=== PATIENT | male | born 1930 ===

== ENCOUNTER 2018-07-27 03:33 | Inpatient (IN) | payer OTHER, MEDICARE ==
[~2018-07-27] VITALS: Ht 182.9 cm; Wt 77.6 kg
[~2018-07-27 03:33] MED LIST: AMLODIPINE BESYL5 M1 PO; ATORVASTATIN CA20 M1 PO; LISINOPRIL20 M1 PO; ST. JOSEPH ASPI81 M1 PO
--- NOTE | 2018-07-27 10:24 | Admission Core Measures ---
Acute Coronary Syndrome (CM) ACS Core Measures Acute Coronary Syndrome Diagnosis No Congestive Heart Failure (NEW) CHF Core Measures Congestive Heart Failure Diagnosis No Cerebrovascular Accident CVA Core Measures CVA/TIA Diagnosis No Venous Thromboembolism VTE Core Gaudencio (View Protocol) VTE Risk Factors Surgery No Mechanical VTE Prophylaxis d/t N/A MechProphylax Ordered No VTE Pharm Prophylaxis d/t NA PharmProphylax ordered Problem List As ranked by this Provider includes Assessment & Plan 1. Unilateral primary osteoarthritis, left hip HOME MEDS Home Med List Amlodipine Besylate 5 MG TABLET 1 TAB PO DAILY BP (Reported) Aspirin ([place] Aspirin) 81 MG TABLET.DR 1 TAB PO DAILY HEARTHEALTH ( Reported) Atorvastatin Calcium 20 MG TABLET 1 TAB PO DAILY CHOLESTEROL (Reported) Lisinopril 20 MG TABLET 1 TAB PO DAILY BP (Reported)
[2018-07-27] MEDS ORDERED: ASPIRIN EC81 M1 PO (10:26)
[2018-07-27] MEDS ORDERED: COLACE100 M1 PO (10:26)
[2018-07-27] MEDS ORDERED: MIRALAX17 G1 PO (10:26)
[2018-07-27] MEDS ORDERED: PRILOSEC OTC20 M1 PO (10:26)
[2018-07-27] MEDS ORDERED: DILAUDID2 M1 PO (10:26)
--- NOTE | 2018-07-27 10:28 | Patient Discharge Instructions ---
Discharge Instructions General Discharge Information You were seen/treated for: Left hip pain related to unilateral primary osteoarthritis You had these procedures: Left total hip replacement Watch for these problems: Increasing pain despite the use of pain medication Increasing redness, warmth or swelling Drainage of any type from incision Inability to bear weight on operative leg Persistent nausea and vomiting Fever greater than 101.5 degrees Do not soak the wound: Yes No bath, but you may shower: Yes Other wound care: Please keep wound clean and dry. No ointments or lotions of any type on or near incision at any time. No exceptions. Your dressing will be changed by your nurse on the second day after your surgery. Daily dry dressing changes are recommended each day thereafter. Do not soak your wound in a bath or pool at any time until otherwise indicated by your surgeon. You may shower, please dry wound immediately after shower with a clean towel. Special Instructions: Aspirin: You are taking this medication to help prevent blood clot formation. Please take with food to protect your stomach lining. Please take as directed. Constipation: Pain medication can cause constipation. Your surgeon has recommended that you take Colace and miralax each day. You may discontinue this medication if you develop loose stool or diarrhea. If you wish to continue this medication, it is available over the counter. If you are unable to move your bowels after several days, if you are unable to pass gas and are developing bloating, nausea, or vomiting as a result, please contact your doctor. Diet Continue normal diet: Yes Recommended Diet: Heart Healthy Activity Full Activity/No Limits: No Activity Self Limited: Yes Pounds, do NOT lift more than: 10 Activity Limited to: Weight bear as tolerated Acute Coronary Syndrome Inclusion Criteria At DC or during hospital stay patient has or had the following: ACS DIAGNOSIS No Discharge Core Measures Meds if any: Prescribed or Continued at Discharge Meds if any: NOT Prescribed or Continued at Discharge Congestive Heart Failure Inclusion Criteria At DC or during hospital stay patient has or had the following: CHF DIAGNOSIS No Discharge Core Measures Meds if any: Prescribed or Continued at Discharge Meds if any: NOT Prescribed or Continued at Discharge Cerebrovascular accident Inclusion Criteria At DC or during hospital stay patient has or had the following: CVA/TIA Diagnosis No Discharge Core Measures Meds if any: Prescribed or Continued at Discharge Meds if any: NOT Prescribed or Continued at Discharge Venous thromboembolism Inclusion Criteria VTE Diagnosis No VTE Type NONE VTE Confirmed by (Test) NONE Discharge Core Measures - Per Current guidelines, there needs to be overlap - treatment for the first 5 days of Warfarin therapy. - If discharged on Warfarin prior to 5 days of - overlap therapy, the patient will need to be - assessed for post discharge needs including - *Post discharge parental anticoagulation - *Warfarin and/or parental anticoagulation education - *Follow up date to check INR post discharge At least 5 days overlap therapy as Inpatient No Meds if any: Prescribed or Continued at Discharge Note: Overlap Therapy is Warfarin and Anticoagulant Meds if any: NOT Prescribed or Continued at Discharge
--- NOTE | 2018-07-27 10:32 | Surgical Discharge Summary ---
Visit Information Visit Dates Admission Date: 07/27/18 History of Present Illness Chief Complaint: Left hip pain related to unilateral primary osteoarthritis Medical History Isolation History: Standard Surgical History Pertinent Surgical History: non-contributory Review of Systems: See H&P Hospital Course Course Attending Physician: Duane Messina MD Primary Care Physician: Rocky FORRESTER,[facility] Hospital Course: Patient was admitted to the hospital for an elective total joint replacement. The procedure was tolerated well and patient was transferred to a general surgical floor. Diet was advanced and tolerated. The patient was evaluated and treated by physical therapy. At the time of hospital discharge, the vital signs were stable, neurovascular status was intact, and pain was controlled with the use of oral pain medications. Allergies: Coded Allergies: Penicillins (RASH 07/21/18) Disposition Summary Disposition Principal Diagnosis: Left hip unilateral primary ostoearthritis Additional Diagnosis: None Discharge Disposition: home health services Discharge Instructions General Discharge Information Code Status: Full Code Patient's Diet: Heart healthy, advance as tolerated Patient's Activity: WBAT Follow-Up Instructions/Appts: Follow up with Dr. Messina in 6 weeks from date of surgery. Please call office to arrange &/or confirm this appointment. Medications at Discharge Discharge Medications: Stop taking the following medications: Aspirin ([place] Aspirin) 81 MG TABLET.DR ORAL DAILY Continue taking these medications: Atorvastatin Calcium (Atorvastatin Calcium) 20 MG TABLET 1 Tablet ORAL DAILY Amlodipine Besylate (Amlodipine Besylate) 5 MG TABLET 1 Tablet ORAL DAILY Lisinopril (Lisinopril) 20 MG TABLET 1 Tablet ORAL DAILY Start taking the following new medications: Aspirin (Ecotrin*) 81 MG TABLET.DR 1 Tablet ORAL TWICE DAILY Qty = 60 No Refills Docusate Sodium (Colace) 100 MG CAPSULE 1 Capsule ORAL TWICE DAILY Qty = 14 No Refills Instructions: DISCONTINUE USE IF YOU DEVELOP LOOSE STOOL OR DIARRHEA Polyethylene Glycol 3350 (Miralax) 17 GRAM POWD.PACK 1 Packet ORAL DAILY Qty = 7 No Refills Instructions: dissolve in water, DISCONTINUE USE IF YOU DEVELOP LOOSE STOOL OR DIARRHEA Omeprazole Magnesium (Prilosec Otc) 20 MG TABLET.DR 1 Tablet ORAL DAILY Qty = 30 No Refills Hydromorphone HCl (Dilaudid) 2 MG TABLET 1-2 Tablet ORAL EVERY 4-6 HOURS NEEDED as needed for PAIN Qty = 36 No Refills
--- NOTE | 2018-07-27 14:17 | RADIOLOGY REPORT ---
EXAMINATION: XR HIP, LEFT CLINICAL INFORMATION: Postoperative hip replacement. COMPARISON: None TECHNIQUE: Two views of the left hip. FINDINGS: The femoral head prosthesis is well centered within the acetabular cup which has lateral version of approximately 45 degrees and anteversion of approximately 20 degrees. The femoral stem is well centered within the medullary cavity of the proximal femoral diaphysis. No acute periprosthetic fracture. Drainage tube is seen within the hip. Peripheral vessels are calcified. IMPRESSION: Satisfactory position and alignment of components of the left total hip arthroplasty.
--- NOTE | 2018-07-27 14:47 | Cons- Medical ---
Sohail Cunha MD 07/27/18 1447: General Information and HPI Consulting Request Date of Consult: 07/27/18 Requested By: Duane Messina MD History of Present Illness: 87-year-old man with past medical history of coronary artery disease status post 6 vessel CABG (January 2000), hypertensive heart disease, hyperlipidemia, atrial flutter status post ablation (2008), system disease, and presyncope admitted for an elective left total hip replacement. Patient underwent the procedure with his orthopedist Dr. Messina today (07/27/18) uneventfully. In the PACU postoperatively patient was found to be bradycardic with an irregular rhythm for which a medical consult was placed given his extensive cardiovascular history. Presently patient is awake and alert and following commands. He admits to moderate/severe left hip pain after the procedure but otherwise denies any complaints. Review of systems He denies any headache, fever, chills, chest pain, palpitations, heartburn, shortness of breath, cough, nausea, vomiting, diarrhea, abdominal pain, numbness , tingling, or weakness. Allergies/Medications Allergies: Coded Allergies: Penicillins (RASH 07/21/18) Home Med List: Amlodipine Besylate 5 MG TABLET 1 TAB PO DAILY BP (Reported) Aspirin ([place] Aspirin) 81 MG TABLET.DR 1 TAB PO DAILY HEARTHEALTH ( Reported) Aspirin (Ecotrin*) 81 MG TABLET.DR 1 TAB PO BID ANTICOAGULATION Atorvastatin Calcium 20 MG TABLET 1 TAB PO DAILY CHOLESTEROL (Reported) Docusate Sodium (Colace) 100 MG CAPSULE 1 CAP PO BID CONSITPATION DISCONTINUE USE IF YOU DEVELOP LOOSE STOOL OR DIARRHEA Hydromorphone HCl (Dilaudid) 2 MG TABLET 1-2 TAB PO Q4-6 PRN PRN PAIN Lisinopril 20 MG TABLET 1 TAB PO DAILY BP (Reported) Omeprazole Magnesium (Prilosec Otc) 20 MG TABLET.DR 1 TAB PO DAILY GI PROTECTION Polyethylene Glycol 3350 (Miralax) 17 GRAM POWD.PACK 1 PAC PO DAILY CONSTIPATION dissolve in water, DISCONTINUE USE IF YOU DEVELOP LOOSE STOOL OR DIARRHEA Review of Systems Review of Systems Constitutional: Reports: see HPI. Past History Surgical History Surgical History: non-contributory Psychosocial History Smoking Status: Unknown If Ever Smoked Exam & Diagnostic Data Last 24 Hrs of Vital Signs/I&O See paper chart, notable for bradycardia Physical Exam Other Physical Findings: Gen.-well-developed, overweight elderly man in no acute distress HEENT-NCAT, PERRL, EOMI, anicteric sclera, moist mucous membranes Neck-supple, no JVD, trachea midline Cardio-normal S1/S2 without murmurs/gallops/rubs; irregular and bradycardic Pulmonary-clear to auscultation bilaterally Abdomen-soft, nontender, nondistended, bowel sounds intact Neuro-awake and alert, cranial nerves II through XII grossly intact Left hip-surgical dressing in place without any surrounding drainage with drain in place draining serosanguineous fluid Extremities-pulses/sensation intact distally, no edema Last 24 Hrs of Labs/Theodore: None available, preoperative labs available in chart Assessment/Plan Assessment/Plan 87-year-old man with an extensive cardiovascular history admitted for left total hip replacement found to be bradycardic postoperatively for which a medicine consult was placed. Notes from patient's food technology teacher Dr. Bryon Eubanks available in the chart were reviewed and comments palpitations significant cardiovascular history including significant conduction system disease including atrial flutter status post ablation, atrial fibrillation at times, wenkebach. Beta-blockers should be avoided in this patient unless he suddenly becomes tachycardia for which low dose betablockers may be considered. Patient should be monitored on the telemetry floor postoperatively for further arrhythmias. Cardiology consultation should be obtained. Patient's home medications should be continued and his left hip pain should be addressed. Problem list -Status post left total hip replacement, POD #0 -Coronary artery disease status post 6 vessel CABG in January 2000 -History of atrial flutter status post ablation -History of episodes of atrial fibrillation -History of Wenkebach -Hyperlipidemia -Hypertensive heart disease -BPH -Gly-qbbxjvn-kzavopavy diabetes mellitus -Chronic kidney disease stage III -Chronic anemia -Cervical spine DJD Recommendations -Postoperative care per orthopedics -Telemetry monitoring -Accu-Cheks 3 times a day before meals/at bedtime -Continue home meds: Amlodipine, aspirin, atorvastatin, lisinopril -Obtain cardiology consult -Check a second troponin / EKG tonight -Monitor H&H postoperatively -DVT prophylaxis Consult Acknowledgment - Thank you for your consult request. Ranulfo FORRESTER,[place] 07/27/18 1558: Assessment/Plan Consult Acknowledgment - Thank you for your consult request. Attending MD Review Statement Attending Statement Attending MD Statement: examined this patient, discuss w/resident/PA/SALES LEDGER CLERK, agreed w/resident/PA/SALES LEDGER CLERK, reviewed EMR data (avail), discussed with nursing, reviewed images, amended to note Attending Assessment/Plan: 87 y/o M with pmh sig for extnesive cardiac hx including coronary artery disease status post 6 vessel CABG (January 2000), hypertensive heart disease, hyperlipidemia, atrial flutter status post ablation (2008), lightheadedness, presyncope, CKD stage 3 who is status post left total hip replacement and admitted under Dr. Lange service. Medical consult was obtained secondary . Patient himself complained of left hip pain. He denies any chest pain, shortness of breath, palpitations or dizziness at present. Reviewed the note from his food technology teacher Dr. Bryon Eubanks. 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 Patient has a loop monitor and currently has been monitored per his food technology teacher. Road Roller Engineer also mentioned that if patient becomes tachycardic then okay to use low-dose IV beta- niles but avoid long-term use. Road Roller Engineer also very clearly mentioned guidelines about patient's aspirin. Currently he takes lisinopril and food technology teacher had recommended to continue his lisinopril. His heart rate was in 50s and his blood pressure was stable and I saw the patient. on exam; aox3, nad. cv; s1,s2, irregular, carlos resp; clear abd; soft, nt, bs+ ext; trace edema. ms: + dressing on left hip, with a drain. Labs. no labs inpatient. Assessment and recommendations: 87 y/o M with pmh sig for extnesive cardiac hx including coronary artery disease status post 6 vessel CABG (January 2000), hypertensive heart disease, hyperlipidemia, atrial flutter status post ablation (2008), lightheadedness, presyncope, CKD stage [address] Lange service after he has left total hip replacement for osteoarthritis postop day #0. Medical consult is obtained secondary to having abnormal EKG, bradycardia and issues with patient's blood pressure. At this point patient will be admitted to telemetry. Please check electrolytes. Please check CBC to make sure H&H is stable. Please also check magnesium. Patient will be monitored on the court recording monitor. Would recommend calling the cardiology consult whoever covers for Dr. Eubanks. I did communicate this to surgical PA. Can continue patient's lisinopril and amlodipine. Avoid beta-niles at present with current heart rate. As per patient's food technology teacher, if he starts to become tachycardic then can use low-dose IV beta blockers. Currently he is bradycardic therefore no need to use any beta-blockers. Patient also takes baby aspirin but would defer the DVT prophylaxis to orthopedic. If using high-dose aspirin or any other blood thinner than his baby aspirin will need to be stopped. But I will defer this to the orthopedic. Monitor H&H postoperatively. Encourage physical therapy and incentive spirometry postoperatively. DVT prophylaxis: Defer to orthopedic. Thank you for allowing us to participate in the care of this patient. Will follow along with you.
--- NOTE | 2018-07-27 15:37 | Operative Report ---
Operative/Inv Procedure Report Surgery Date: 07/27/18 Name of Procedure: Left total hip replacement Pre-Operative Diagnosis: Primary left hip DJD Post-Operative Diagnosis: Same Estimated Blood Loss: 250 Surgeon/Wood Tile Installer: Siddharth FORRESTER,[place] Anesthesia: block Operative/Procedure Note Note: Description of Procedure: The patient was taken to the operating room and positively identified. After induction of spinal anesthesia and administration of appropriate pre-operative antibiotics, the patient was positioned supine on the operating room table and all bony prominences were well padded. After performing a surgical timeout, the left lower extremity was prepped and draped in the usual sterile fashion. A direct anterior approach was made to the left hip. The incision was carried sharply through superficial soft tissues to the level of the fascia. Meticulous hemostasis was maintained with Bovie electocautery. The fascia over the tensor fascia kyra muscle was opened sharply and the interval between the TFL and the sartorius was entered bluntly taking care to stay lateral to the lateral femoral cutaneous nerve. Retractors were placed around the femoral neck and the pericapsular fat was identified. The ascending branches of the lateral femoral circumflex vessels were identified and carefully coagulated. The pericapsular fat and anterior capsule were then resected. A napkin ring osteotomy was performed and the femoral head was removed without difficulty. Attention was then turned to the acetabulum. After appropriate placement of retractors, the acetabulum was exposed. Soft tissue was cleaned from the acetabular margin and notch. Overhanging osteophytes were removed and the teardrop was exposed. The acetabulum was then sequentially reamed to accept a 60 mm [place] Tritanium hemispherical solid shell. This was impacted into place in the appropriate position and fitted with a 36 mm Trident X3 zero degree polyethylene insert. Attention was then turned to the femur. After performing the appropriate ligament releases, the proximal femur was exposed. It was then sequentially broached to accept a size 10 [place] secure fit advanced 132 neck angle stem. This was trialed for leg length and stability. The trial component was removed and the final component was impacted into place. The trunnion was carefully cleaned and fit with a 36 mm, +0 Biolox delta ceramic femoral head. The hip was reduced and put through a full range of motion and found to be stable. The articular space was then irrigated with sterile saline. The periarticular soft tissues were infilitrated with Marcaine. The fascial layer was closed with interrupted #1 vicryl suture and the skin was re-approximated with interrupted 2 -0 vicryl. The skin was closed with a running 3-0 V-Lock suture. Steri-strips and a sterile dressing were applied. The patient was awakened and taken to the recovery room in satisfactory condition.
[2018-07-27 16:10] VITALS: BP 106/50
--- NOTE | 2018-07-27 17:03 | PN- Orthopedic ---
Subjective Subjective: POC feeling well, minimal pain. awaiting pt eval. eager to dc home with hhs. bradycardic to 30s in pacu, asymptomatic. no cp/sob/n/v at this time. due to void postop Objective Vital Signs and I&Os Vital Signs Date Time Temp Pulse Resp B/P B/P Pulse O2 O2 Flow FiO2 Mean Ox Delivery Rate 07/27 1610 53 16 106/50 96 Physical Exam: gen- nad card-s1s2 carlos in 50s, irregular pulm- ctab abd- soft nt ext- left hip dressed- cdi. hemovac in place, minimal serosang drainage. calves soft nt bl, alps on. gross sensation/dorsi/plantar flexion intact/equal bl le. feet warm. Results Last 48 Hours of Labs: Laboratory Tests 07/27 1627 Chemistry Sodium Pending Potassium Pending Chloride Pending Carbon Dioxide Pending Anion Gap Pending BUN Pending Creatinine Pending BUN/Creatinine Ratio Pending Magnesium Pending Hematology CBC w Diff Pending WBC Pending RBC Pending Hgb Pending Hct Pending MCV Pending MCH Pending MCHC Pending RDW Pending Plt Count Pending MPV Pending Assessment/Plan Assessment/Plan A- POD0 sp L ALEENA, with postop bradycardia, now in 50s but down to 30s in pacu, asymptomatic, now on tele, with extensive cardiac hx includin afib/flutter sp ablation, hx winkebach block and cad sp cabg in 1999. P- tele monitoring cont home card meds cbc, lytes pending alps, oob asa 81mg bid prn pain meds oob, pt, wbat Dr. Herrera aware of consult, awaiting his input appreciate medicine input dc planning will dw attending Core Measures Venous Thromboembolism VTE Risk Factors Surgery No Mechanical VTE Prophylaxis d/t N/A MechProphylax Ordered No VTE Pharm Prophylaxis d/t NA PharmProphylax ordered
[2018-07-27 17:26] LABS: ABSOLUTE BASOPHIL COUNT 0 /CUMM (0.0-0.2); ABSOLUTE EOSINOPHIL COUNT 0.2 /CUMM (0.0-0.7); ABSOLUTE GRANULOCYTE CT 6.3 /CUMM (1.4-6.5); ABSOLUTE LYMPH COUNT 1.5 /CUMM (1.2-3.4); ABSOLUTE MONOCYTE COUNT 0.5 /CUMM (0.10-0.60); BASOPHIL % 0.3 % (0.0-2.0); EOSINOPHIL % 2.7 % (0-5); GRANULOCYTE % 73.4 % (42.2-75.2); HEMATOCRIT 26.5 % (42-52); MEAN CORPUSCULAR HGB 29.7 PG (27.0-31.0); MEAN CORPUSCULAR HGB CONC 33.1 G/DL (33.0-37.0); MEAN CORPUSCULAR VOLUME 89.6 FL (80.0-94.0); MEAN PLATELET VOLUME 7.8 FL (7.4-10.4); PLATELET COUNT 185 /CUMM (130-400); RBC DISTRIBUTION WIDTH 13.8 % (11.5-14.5); RED BLOOD CELL CT 2.96 /CUMM (4.70-6.10); WHITE BLOOD CELL COUNT 8.5 /CUMM (4.8-10.8)
[2018-07-27 20:00] VITALS: BP 112/58
[2018-07-27 22:54] VITALS: BP 118/62
[2018-07-27 23:18] LABS: ABSOLUTE BASOPHIL COUNT 0 /CUMM (0.0-0.2); ABSOLUTE EOSINOPHIL COUNT 0.2 /CUMM (0.0-0.7); ABSOLUTE GRANULOCYTE CT 8.3 /CUMM (1.4-6.5); ABSOLUTE MONOCYTE COUNT 0.6 /CUMM (0.10-0.60); BASOPHIL % 0.2 % (0.0-2.0); EOSINOPHIL % 1.8 % (0-5); GRANULOCYTE % 82.1 % (42.2-75.2); HEMATOCRIT 27.5 % (42-52); MEAN CORPUSCULAR HGB 29.5 PG (27.0-31.0); MEAN CORPUSCULAR HGB CONC 32.8 G/DL (33.0-37.0); MEAN CORPUSCULAR VOLUME 89.8 FL (80.0-94.0); MEAN PLATELET VOLUME 8.2 FL (7.4-10.4); PLATELET COUNT 188 /CUMM (130-400); RBC DISTRIBUTION WIDTH 13.6 % (11.5-14.5); RED BLOOD CELL CT 3.07 /CUMM (4.70-6.10); WHITE BLOOD CELL COUNT 10.1 /CUMM (4.8-10.8)
[2018-07-28 02:07] VITALS: BP 140/70
[2018-07-28 06:54] VITALS: BP 136/70
--- NOTE | 2018-07-28 08:00 | PN- Medicine Consult ---
Alphonse FORRESTERSohail 07/28/18 0755: Assessment/PlanMedical Consult Assessment/Plan Assessment: 87-year-old man with an extensive cardiovascular history admitted for left total hip replacement found to be bradycardic postoperatively for which a medicine consult was placed. Patient was remained on telemetry overnight without any concerning episodes of bradycardia. His hemoglobin has remained stable and second troponin / EKG is unremarkable. Magnesium was found to be low which was repleted intravenously. He admits to moderate left sided hip pain. Vitals signs remain with normal limits. Physical examination is unchanged; including the presence of the drain. Patient continues to have evidence of known conduction system disease on telemetry overnight without any hemodynamically significant events. Case was discussed with Pharmacy Stock Clerk Dr. Rogers Herrera yesterday; formal recommendations still pending. Follow up morning labs including magnesium and replete if necessary. Patient worked with physical therapy and reports that his pain is actually better afterwards. Follow up recommendations from cardiology; pending their recommendations patient may be discharged from a medical perspective. Will sign off, reconsult as needed. Problem list -Status post left total hip replacement, POD #1 -Coronary artery disease status post 6 vessel CABG in January 2000 -History of atrial flutter status post ablation -History of episodes of atrial fibrillation -History of Wenkebach -Hyperlipidemia -Hypertensive heart disease -BPH -Tem-rzlmzfb-plawifsrr diabetes mellitus -Chronic kidney disease stage III -Chronic anemia -Cervical spine DJD Recommendations -Medically stable for discharge -Postoperative care per orthopedics -Telemetry monitoring while in hospital -Accu-Cheks 3 times a day before meals/at bedtime -Continue home meds: Amlodipine, aspirin, atorvastatin, lisinopril -PT evaluation -Follow cardiology recommendations -DVT prophylaxis -Signing off, please reconsult as needed if necessary Plan: as above Subjective Subjective: Patient seen and examined. He is seen sitting upright in his chair resting comfortably enjoying his breakfast. He reports minor pain in his left hip. He just returned from working with physical therapy and states that his pain is actually improved after ambulating. He otherwise feels well and is eager to be discharged to home. He denies any fever, chills, chest pain, shortness of breath , abdominal pain. Objective Last 24 Hrs of Vital Signs/I&O Vital Signs Date Time Temp Pulse Resp B/P B/P Pulse O2 O2 Flow FiO2 Mean Ox Delivery Rate 07/28 0654 97.7 72 20 136/70 97 CPAP 07/28 0207 97.6 76 20 140/70 96 CPAP 07/28 0000 Nasal 2.0L Cannula 07/27 2254 97.4 62 16 118/62 94 Room Air 07/27 2000 82 16 112/58 07/27 1610 53 16 106/50 96 07/27 1605 96 Nasal 2.0L Cannula Intake & Output 07/28 0800 07/28 0000 07/27 1600 Intake Total 300 950 Output Total 1325 875 Balance -1025 75 Intake, IV 300 300 Intake, Oral 650 Number 0 Bowel Movements Output, 150 225 Drainage Output, Urine 1175 650 Patient 77.649 kg Weight Weight Bed scale Measurement Method Physical Exam Other Physical Findings: Gen.-well-developed, overweight elderly man in no acute distress HEENT-NCAT, PERRL, EOMI, anicteric sclera, moist mucous membranes Neck-supple, no JVD, trachea midline Cardio-normal S1/S2 without murmurs/gallops/rubs; irregular Pulmonary-clear to auscultation bilaterally Abdomen-soft, nontender, nondistended, bowel sounds intact Neuro-awake and alert, cranial nerves II through XII grossly intact Left hip-surgical dressing in place without any surrounding drainage with drain in place draining serosanguineous fluid Extremities-pulses/sensation intact distally, no edema Current Medications: Current Medications Sig/Jon Start time Last Medication Dose Route Stop Time Status Admin Acetaminophen 0 .STK-MED ONE 07/27 1441 DC IV Acetaminophen 1,000 MG Q6 07/27 1200 DC 07/28 IV 07/28 0601 0613 Acetaminophen 0 .STK-MED ONE 07/27 0813 DC PO Acetaminophen 975 MG ONCE 07/27 0000 DC PO 07/27 235 Amlodipine Besylate 5 MG DAILY 07/28 900 AC PO Aspirin Buffered 81 MG BID 07/27 2100 AC 07/27 PO 205 Atorvastatin Calcium 20 MG DAILY 07/28 900 AC PO Cefazolin Sodium 2 GM IQ8 07/27 1600 DC 07/28 N/A 1 UNIT IV 07/28 0029 0046 Cefazolin Sodium 2,000 MG ONCE 07/27 0000 DC IV 07/27 235 Dextrose/Sodium 1,000 ML .[id number] 07/27 1615 DC 09/05 Chloride IV 1726 Docusate Sodium 100 MG BID 07/27 2100 AC 07/27 PO 2053 Hydromorphone HCl 2 MG Q4P PRN 07/27 161 AC 07/27 PO 2207 Hydromorphone HCl 4 MG Q4P PRN 07/27 1615 AC PO Hydromorphone HCl 0 .STK-MED ONE 07/27 1534 DC .ROUTE Hydromorphone HCl 0 .STK-MED ONE 07/27 1510 DC .ROUTE Lisinopril 20 MG DAILY 07/28 900 AC PO Magnesium Sulfate 1 GM Q2H 07/27 220 DC 07/28 Dextrose/Water 100 ML IV 07/28 0159 0041 Morphine Sulfate 2 MG Q2P PRN 07/27 161 AC IV Omeprazole 40 MG DAILY AC 07/28 0700 AC 07/28 PO 0613 Ondansetron HCl 4 MG Q6P PRN 07/27 1615 AC IV Oxycodone HCl 0 .STK-MED ONE 07/27 0812 DC PO Oxycodone HCl 10 MG ONCE 07/27 0000 DC PO 07/27 2359 Polyethylene Glycol 17 GM DAILY 07/28 900 AC PO Promethazine HCl 12.5 MG Q6P PRN 07/27 161 AC IV 08/03 1029 Results Last 24 Hrs Lab/Theodore Results: Laboratory Tests 07/28/18 0609: Sodium Pending, Potassium Pending, Chloride Pending, Carbon Dioxide Pending, Anion Gap Pending, BUN Pending, Creatinine Pending, BUN/Creatinine Ratio Pending , CBC w Diff Pending, WBC Pending, RBC Pending, Hgb Pending, Hct Pending, MCV Pending, MCH Pending, MCHC Pending, RDW Pending, Plt Count Pending, MPV Pending 07/27/18 2130: Troponin I < 0.01, CBC w Diff NO MAN DIFF REQ, RBC 3.07 L, MCV 89.8, MCH 29.5, MCHC 32.8 L, RDW 13.6, MPV 8.2, Gran % 82.1 H, Lymphocytes % 9.5 L, Monocytes % 6.4, Eosinophils % 1.8, Basophils % 0.2, Absolute Granulocytes 8.3 H, Absolute Lymphocytes 1.0 L, Absolute Monocytes 0.6, Absolute Eosinophils 0.2, Absolute Basophils 0 07/27/18 1627: Anion Gap 7, Estimated GFR 48 L, BUN/Creatinine Ratio 25.7 H, Magnesium 1.4 L , Troponin I < 0.01, CBC w Diff NO MAN DIFF REQ, RBC 2.96 L, MCV 89.6, MCH 29.7 , MCHC 33.1, RDW 13.8, MPV 7.8, Gran % 73.4, Lymphocytes % 17.5 L, Monocytes % 6.1, Eosinophils % 2.7, Basophils % 0.3, Absolute Granulocytes 6.3, Absolute Lymphocytes 1.5, Absolute Monocytes 0.5, Absolute Eosinophils 0.2, Absolute Basophils 0 Ranulfo FORRESTER,[facility] 07/28/18 1237: Attending MD Review Statement Attending Sign Off Attending Cosign Statement: I have: examined this patient, reviewed al EMR data, personally reviewd images, discussd w/resident/PA/DATA PROCESSING SYSTEMS PROJECT PLANNER, discussed mgmt plan w/zak, discussed mgmt plan w/pt, agreed w/resident/PA/DATA PROCESSING SYSTEMS PROJECT PLANNER, amended to note. Other Findings: Patient seen and examined, overall doing better. Left hip pain is better controlled. Overnight on telemetry, patient had some bradycardia. Vital Signs Date Time Temp Pulse Resp B/P B/P Pulse O2 O2 Flow FiO2 Mean Ox Delivery Rate 07/28 0943 136/70 07/28 0942 136/70 07/28 0654 97.7 72 20 136/70 97 CPAP 07/28 0207 97.6 76 20 140/70 96 CPAP 07/28 0000 Nasal 2.0L Cannula 07/27 2254 97.4 62 16 118/62 94 Room Air 07/27 2000 82 16 112/58 07/27 1610 53 16 106/50 96 07/27 1605 96 Nasal 2.0L Cannula on exam; aox3, nad. cv; s1,s2, carlos. resp; clear abd; soft, nt, bs+ ext; no edema and dressing on left hip. Laboratory Tests 07/28 07/27 0609 2130 Chemistry Sodium (137 - 145 mmol/L) 136 L Potassium (3.5 - 5.1 mmol/L) 5.2 H Chloride (98 - 107 mmol/L) 110 H Carbon Dioxide (22 - 30 mmol/L) 18 L Anion Gap (5 - 16) 8 BUN (9 - 20 mg/dL) 32 H Creatinine (0.7 - 1.2 mg/dL) 1.1 Estimated GFR (>60 ml/min) > 60 BUN/Creatinine Ratio (7 - 25 %) 29.1 H Magnesium (1.6 - 2.3 mg/dL) 1.7 Troponin I (<0.11 ng/ml) < 0.01 Hematology CBC w Diff NO MAN DIFF REQ NO MAN DIFF REQ WBC (4.8 - 10.8 /CUMM) 8.6 10.1 RBC (4.70 - 6.10 /CUMM) 3.00 L 3.07 L Hgb (14.0 - 18.0 G/DL) 8.9 L 9.1 L Hct (42 - 52 %) 26.7 L 27.5 L MCV (80.0 - 94.0 FL) 89.0 89.8 MCH (27.0 - 31.0 PG) 29.6 29.5 MCHC (33.0 - 37.0 G/DL) 33.3 32.8 L RDW (11.5 - 14.5 %) 13.9 13.6 Plt Count (130 - 400 /CUMM) 173 188 MPV (7.4 - 10.4 FL) 8.7 8.2 Gran % (42.2 - 75.2 %) 74.5 82.1 H Lymphocytes % (20.5 - 51.1 %) 12.6 L 9.5 L Monocytes % (1.7 - 9.3 %) 7.9 6.4 Eosinophils % (0 - 5 %) 4.7 1.8 Basophils % (0.0 - 2.0 %) 0.3 0.2 Absolute Granulocytes (1.4 - 6.5 /CUMM) 6.4 8.3 H Absolute Lymphocytes (1.2 - 3.4 /CUMM) 1.1 L 1.0 L Absolute Monocytes (0.10 - 0.60 /CUMM) 0.7 H 0.6 Absolute Eosinophils (0.0 - 0.7 /CUMM) 0.4 0.2 Absolute Basophils (0.0 - 0.2 /CUMM) 0 0 09/05 1627 Chemistry Sodium (137 - 145 mmol/L) 137 Potassium (3.5 - 5.1 mmol/L) 5.1 Chloride (98 - 107 mmol/L) 112 H Carbon Dioxide (22 - 30 mmol/L) 19 L Anion Gap (5 - 16) 7 BUN (9 - 20 mg/dL) 36 H Creatinine (0.7 - 1.2 mg/dL) 1.4 H Estimated GFR (>60 ml/min) 48 L BUN/Creatinine Ratio (7 - 25 %) 25.7 H Magnesium (1.6 - 2.3 mg/dL) 1.4 L Troponin I (<0.11 ng/ml) < 0.01 Hematology CBC w Diff NO MAN DIFF REQ WBC (4.8 - 10.8 /CUMM) 8.5 RBC (4.70 - 6.10 /CUMM) 2.96 L Hgb (14.0 - 18.0 G/DL) 8.8 L Hct (42 - 52 %) 26.5 L MCV (80.0 - 94.0 FL) 89.6 MCH (27.0 - 31.0 PG) 29.7 MCHC (33.0 - 37.0 G/DL) 33.1 RDW (11.5 - 14.5 %) 13.8 Plt Count (130 - 400 /CUMM) 185 MPV (7.4 - 10.4 FL) 7.8 Gran % (42.2 - 75.2 %) 73.4 Lymphocytes % (20.5 - 51.1 %) 17.5 L Monocytes % (1.7 - 9.3 %) 6.1 Eosinophils % (0 - 5 %) 2.7 Basophils % (0.0 - 2.0 %) 0.3 Absolute Granulocytes (1.4 - 6.5 /CUMM) 6.3 Absolute Lymphocytes (1.2 - 3.4 /CUMM) 1.5 Absolute Monocytes (0.10 - 0.60 /CUMM) 0.5 Absolute Eosinophils (0.0 - 0.7 /CUMM) 0.2 Absolute Basophils (0.0 - 0.2 /CUMM) 0 Assessment and recommendations: 87 y/o M with pmh sig for extnesive cardiac hx including coronary artery disease status post 6 vessel CABG (January 2000), hypertensive heart disease, hyperlipidemia, atrial flutter status post ablation (2008), lightheadedness, presyncope, CKD stage [address] Lange service after he has left total hip replacement for osteoarthritis postop day #1. Medical consult was obtained secondary to having abnormal EKG, bradycardia and issues with patient's blood pressure. Patient overall doing well. He has had episodes of bradycardia overnight but this was somewhat expected as noted in patient's international relations professor note from preop evaluation. Patient remained asymptomatic. His magnesium levels were low yesterday and they have been repleted. This morning magnesium is 1.7 Patient otherwise has good pain control currently. He will be seen by international relations professor and if it is okay with them then patient can likely be discharged. Continue home medications. Will defer the DVT prophylaxis to orthopedic.
[2018-07-28 08:26] LABS: ABSOLUTE BASOPHIL COUNT 0 /CUMM (0.0-0.2); ABSOLUTE EOSINOPHIL COUNT 0.4 /CUMM (0.0-0.7); ABSOLUTE GRANULOCYTE CT 6.4 /CUMM (1.4-6.5); ABSOLUTE LYMPH COUNT 1.1 /CUMM (1.2-3.4); ABSOLUTE MONOCYTE COUNT 0.7 /CUMM (0.10-0.60); BASOPHIL % 0.3 % (0.0-2.0); EOSINOPHIL % 4.7 % (0-5); GRANULOCYTE % 74.5 % (42.2-75.2); HEMATOCRIT 26.7 % (42-52); MEAN CORPUSCULAR HGB 29.6 PG (27.0-31.0); MEAN CORPUSCULAR HGB CONC 33.3 G/DL (33.0-37.0); MEAN PLATELET VOLUME 8.7 FL (7.4-10.4); PLATELET COUNT 173 /CUMM (130-400); RBC DISTRIBUTION WIDTH 13.9 % (11.5-14.5); WHITE BLOOD CELL COUNT 8.6 /CUMM (4.8-10.8)
--- NOTE | 2018-07-28 09:19 | PN- Orthopedic ---
Subjective Subjective: Mild complaints of left hip pain, no acute events overnight, no chest pain or palpitations, not feeling lightheaded or dizzy, left hip pain controlled with medication Objective Vital Signs and I&Os Vital Signs Date Time Temp Pulse Resp B/P B/P Pulse O2 O2 Flow FiO2 Mean Ox Delivery Rate 07/28 0654 97.7 72 20 136/70 97 CPAP 07/28 0207 97.6 76 20 140/70 96 CPAP 07/28 0000 Nasal 2.0L Cannula 07/27 2254 97.4 62 16 118/62 94 Room Air 07/27 2000 82 16 112/58 07/27 1610 53 16 106/50 96 07/27 1605 96 Nasal 2.0L Cannula Intake & Output 07/28 0807/28 0000 07/27 0000 Intake Total 300 950 Output Total 1325 875 Balance -1025 75 Intake, IV 300 300 Intake, Oral 650 Number 0 Bowel Movements Output, 150 225 Drainage Output, Urine 1175 650 Patient 171 lb Weight Weight Bed scale Measurement Method Physical Exam: Well-developed well-nourished no apparent distress. HEENT: Atraumatic, extraocular motion intact Neck: Supple, no lymphadenopathy Respiratory: No respiratory distress Extremities: No edema Left lower extremity hip dressing in place, Hemovac drain in place with approximately 15 cc of bloody drainage noted. Hemovac drain pulled without complications Dressing clean dry and intact Mild thigh swelling No signs of infection. No shortening or rotation Hip range of motion is limited and without unexpected pain Neurovascularly intact distally Bilateral calves are supple, nontender. Neuro: Alert and oriented x3 Psych: Mood affect normal, normal memory normal judgment. Skin: Warm and dry, no rash on exposed skin Results Last 48 Hours of Labs: Laboratory Tests 07/28 07/27 0609 2130 Chemistry Sodium (137 - 145 mmol/L) 136 L Potassium (3.5 - 5.1 mmol/L) 5.2 H Chloride (98 - 107 mmol/L) 110 H Carbon Dioxide (22 - 30 mmol/L) 18 L Anion Gap (5 - 16) 8 BUN (9 - 20 mg/dL) 32 H Creatinine (0.7 - 1.2 mg/dL) 1.1 Estimated GFR (>60 ml/min) > 60 BUN/Creatinine Ratio (7 - 25 %) 29.1 H Magnesium (1.6 - 2.3 mg/dL) Pending Troponin I (<0.11 ng/ml) < 0.01 Hematology CBC w Diff NO MAN DIFF REQ NO MAN DIFF REQ WBC (4.8 - 10.8 /CUMM) 8.6 10.1 RBC (4.70 - 6.10 /CUMM) 3.00 L 3.07 L Hgb (14.0 - 18.0 G/DL) 8.9 L 9.1 L Hct (42 - 52 %) 26.7 L 27.5 L MCV (80.0 - 94.0 FL) 89.0 89.8 MCH (27.0 - 31.0 PG) 29.6 29.5 MCHC (33.0 - 37.0 G/DL) 33.3 32.8 L RDW (11.5 - 14.5 %) 13.9 13.6 Plt Count (130 - 400 /CUMM) 173 188 MPV (7.4 - 10.4 FL) 8.7 8.2 Gran % (42.2 - 75.2 %) 74.5 82.1 H Lymphocytes % (20.5 - 51.1 %) 12.6 L 9.5 L Monocytes % (1.7 - 9.3 %) 7.9 6.4 Eosinophils % (0 - 5 %) 4.7 1.8 Basophils % (0.0 - 2.0 %) 0.3 0.2 Absolute Granulocytes (1.4 - 6.5 /CUMM) 6.4 8.3 H Absolute Lymphocytes (1.2 - 3.4 /CUMM) 1.1 L 1.0 L Absolute Monocytes (0.10 - 0.60 /CUMM) 0.7 H 0.6 Absolute Eosinophils (0.0 - 0.7 /CUMM) 0.4 0.2 Absolute Basophils (0.0 - 0.2 /CUMM) 0 0 09/05 1627 Chemistry Sodium (137 - 145 mmol/L) 137 Potassium (3.5 - 5.1 mmol/L) 5.1 Chloride (98 - 107 mmol/L) 112 H Carbon Dioxide (22 - 30 mmol/L) 19 L Anion Gap (5 - 16) 7 BUN (9 - 20 mg/dL) 36 H Creatinine (0.7 - 1.2 mg/dL) 1.4 H Estimated GFR (>60 ml/min) 48 L BUN/Creatinine Ratio (7 - 25 %) 25.7 H Magnesium (1.6 - 2.3 mg/dL) 1.4 L Troponin I (<0.11 ng/ml) < 0.01 Hematology CBC w Diff NO MAN DIFF REQ WBC (4.8 - 10.8 /CUMM) 8.5 RBC (4.70 - 6.10 /CUMM) 2.96 L Hgb (14.0 - 18.0 G/DL) 8.8 L Hct (42 - 52 %) 26.5 L MCV (80.0 - 94.0 FL) 89.6 MCH (27.0 - 31.0 PG) 29.7 MCHC (33.0 - 37.0 G/DL) 33.1 RDW (11.5 - 14.5 %) 13.8 Plt Count (130 - 400 /CUMM) 185 MPV (7.4 - 10.4 FL) 7.8 Gran % (42.2 - 75.2 %) 73.4 Lymphocytes % (20.5 - 51.1 %) 17.5 L Monocytes % (1.7 - 9.3 %) 6.1 Eosinophils % (0 - 5 %) 2.7 Basophils % (0.0 - 2.0 %) 0.3 Absolute Granulocytes (1.4 - 6.5 /CUMM) 6.3 Absolute Lymphocytes (1.2 - 3.4 /CUMM) 1.5 Absolute Monocytes (0.10 - 0.60 /CUMM) 0.5 Absolute Eosinophils (0.0 - 0.7 /CUMM) 0.2 Absolute Basophils (0.0 - 0.2 /CUMM) 0 Assessment/Plan Assessment/Plan Postop day #1 status post left total hip arthroplasty anterior approach Perioperative antibiotics. Pain medication as needed. Out of bed Physical therapy, weightbearing as tolerated DC IV fluids Regular diet Follow a.m. labs Aspirin for DVT prophylaxis ALPS for DVT prophylaxis Regular home meds Dressing change postop day 2 Acute blood loss anemia, H&H stable, left hip Hemovac drain pulled Postoperative bradycardia: Appreciate medical input, awaiting cardiology consultation. Patient is cleared from orthopedic standpoint for discharge home as his pain is controlled, no immediate postoperative complications with the left hip, H&H is stabilized and he is cleared physical therapy. Patient may be discharged home later today if it is acceptable with medicine and cardiology Core Measures Venous Thromboembolism VTE Risk Factors Surgery No Mechanical VTE Prophylaxis d/t N/A MechProphylax Ordered No VTE Pharm Prophylaxis d/t NA PharmProphylax ordered
[2018-07-28 09:43] VITALS: BP 136/70
--- NOTE | 2018-07-28 13:34 | Cons- Cardiology ---
General Information and HPI Consulting Request Date of Consult: 07/28/18 Requested By: Duane Messina MD Reason for Consult: Bradycardia Source of Information: patient, family, old records Exam Limitations: no limitations History of Present Illness: The patient is an 87-year-old male who is followed by Dr. Bryon Eubanks is his regular charge histotechnologist. His past medical history is remarkable for coronary artery disease, post bypass surgery in 1999, hypertensive heart disease, hyperlipidemia, prior atrial arrhythmias, status post ablation in 2008, known history of heart block, who currently has a link monitor in place and is being monitored for further arrhythmias as an outpatient. The patient had a hip replacement surgery with Dr. Lange yesterday. The surgery was uneventful. Apparently, in PACU the patient was noted to be intimately bradycardic. Review of the rhythms at that time shows sinus bradycardia with some winky block and occasional brief junctional escape beats. The patient was transferred to [address] [place] [address] telemetry for monitoring. Overnight, the patient has had sinus rhythm/sinus bradycardia with brief episodes of winky block. Currently he is in sinus rhythm with a heart rate of 80. He has had no other cardiac symptoms. This morning he has been stable. He ambulated and negotiated stairs with physical therapy. He is anxious to go home. Allergies/Medications Allergies: Coded Allergies: Penicillins (RASH 07/21/18) Home Med List: Amlodipine Besylate 5 MG TABLET 1 TAB PO DAILY BP (Reported) Aspirin (Ecotrin*) 81 MG TABLET.DR 1 TAB PO BID ANTICOAGULATION Atorvastatin Calcium 20 MG TABLET 1 TAB PO DAILY CHOLESTEROL (Reported) Docusate Sodium (Colace) 100 MG CAPSULE 1 CAP PO BID CONSITPATION DISCONTINUE USE IF YOU DEVELOP LOOSE STOOL OR DIARRHEA Hydromorphone HCl (Dilaudid) 2 MG TABLET 1-2 TAB PO Q4-6 PRN PRN PAIN Lisinopril 20 MG TABLET 1 TAB PO DAILY BP (Reported) Omeprazole Magnesium (Prilosec Otc) 20 MG TABLET.DR 1 TAB PO DAILY GI PROTECTION Polyethylene Glycol 3350 (Miralax) 17 GRAM POWD.PACK 1 PAC PO DAILY CONSTIPATION dissolve in water, DISCONTINUE USE IF YOU DEVELOP LOOSE STOOL OR DIARRHEA Current Medications: Current Medications Sig/Jon Start time Last Medication Dose Route Stop Time Status Admin Acetaminophen 0 .STK-MED ONE 07/27 1441 DC IV Acetaminophen 1,000 MG Q6 07/27 1200 DC 07/28 IV 07/28 0601 1144 Acetaminophen 975 MG ONCE 07/27 0000 DC PO 07/27 2359 Amlodipine Besylate 5 MG DAILY 07/28 900 AC 07/28 PO 0942 Aspirin Buffered 81 MG BID 07/27 2100 AC 07/28 PO 0942 Atorvastatin Calcium 20 MG DAILY 07/28 900 AC 07/28 PO 0942 Cefazolin Sodium 2 GM IQ8 07/27 1600 DC 07/28 N/A 1 UNIT IV 07/28 0029 0046 Cefazolin Sodium 2,000 MG ONCE 07/27 0000 DC IV 07/27 2359 Dextrose/Sodium 1,000 ML .[id number] 07/27 161 DC 07/27 Chloride IV 1726 Docusate Sodium 100 MG BID 07/27 2100 AC 07/28 PO 0942 Hydromorphone HCl 2 MG Q4P PRN 07/27 1615 AC 07/28 PO 1317 Hydromorphone HCl 4 MG Q4P PRN 07/27 1615 AC PO Hydromorphone HCl 0 .STK-MED ONE 07/27 1534 DC .ROUTE Hydromorphone HCl 0 .STK-MED ONE 07/27 1510 DC .ROUTE Lisinopril 20 MG DAILY 07/28 900 AC 07/28 PO 0943 Magnesium Sulfate 1 GM Q2H 07/27 2200 DC 07/28 Dextrose/Water 100 ML IV 07/28 0159 0041 Morphine Sulfate 2 MG Q2P PRN 07/27 1615 AC IV Omeprazole 40 MG DAILY AC 07/28 07 AC 07/28 PO 0613 Ondansetron HCl 4 MG Q6P PRN 07/27 1615 AC IV Oxycodone HCl 10 MG ONCE 07/27 0000 DC PO 07/27 2359 Polyethylene Glycol 17 GM DAILY 07/28 900 AC 07/28 PO 0943 Promethazine HCl 12.5 MG Q6P PRN 07/27 1615 AC IV 08/03 1029 Past History Medical History Blood Transfusion Hx: No Neurological: HEADACHES EENT: cataracts, hearing loss, sinusitis Cardiovascular: aflutter, CAD, ABLATION, CABG, IMPLANTED LOOP RECORDER Respiratory: NONE, obstructive sleep apnea Gastrointestinal: GERD Hepatic: NONE Renal: benign prost hyperplasia, KIDNEY AND BLADDER STONES Musculoskeletal: osteoarthritis, CARPAL TUNNEL Psychiatric: NONE Endocrine: NIDDM LYME, PARVO Blood Disorders: NONE 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 Home Services at Home: None Smoking Status: Never Smoked Exam & Diagnostic Data Vital Signs and I&O Vital Signs Date Time Temp Pulse Resp B/P B/P Pulse O2 O2 Flow FiO2 Mean Ox Delivery Rate 07/28 0943 136/70 07/28 0942 136/70 07/28 0654 97.7 72 20 136/70 97 CPAP 07/28 0207 97.6 76 20 140/70 96 CPAP 07/28 0000 Nasal 2.0L Cannula 07/27 2254 97.4 62 16 118/62 94 Room Air 07/27 2000 82 16 112/58 07/27 1610 53 16 106/50 96 07/27 1605 96 Nasal 2.0L Cannula Intake & Output 07/28 1600 07/28 0800 07/28 0000 07/27 1600 07/27 0800 07/27 0000 Intake Total 300 950 Output Total 1325 875 Balance -1025 75 Intake, IV 300 300 Intake, Oral 650 Number 0 Bowel Movements Output, 150 225 Drainage Output, Urine 1175 650 Patient 171 lb Weight Weight Bed scale Measurement Method Physical Exam: Gen.-well-developed, overweight elderly man in no acute distress HEENT-NCAT, PERRL, EOMI, anicteric sclera, moist mucous membranes Neck-supple, no JVD, trachea midline Cardio-normal S1/S2 without murmurs/gallops/rubs; occasionally irregular Pulmonary-clear to auscultation bilaterally Abdomen-soft, nontender, nondistended, bowel sounds intact Neuro-awake and alert, cranial nerves II through XII grossly intact Left hip-surgical dressing in place without any surrounding drainage with drain in place draining serosanguineous fluid Extremities-pulses/sensation intact distally, no edema Labs/Theodore Results: Laboratory Tests 07/28 07/27 0609 2130 Chemistry Sodium (137 - 145 mmol/L) 136 L Potassium (3.5 - 5.1 mmol/L) 5.2 H Chloride (98 - 107 mmol/L) 110 H Carbon Dioxide (22 - 30 mmol/L) 18 L Anion Gap (5 - 16) 8 BUN (9 - 20 mg/dL) 32 H Creatinine (0.7 - 1.2 mg/dL) 1.1 Estimated GFR (>60 ml/min) > 60 BUN/Creatinine Ratio (7 - 25 %) 29.1 H Magnesium (1.6 - 2.3 mg/dL) 1.7 Troponin I (<0.11 ng/ml) < 0.01 Hematology CBC w Diff NO MAN DIFF REQ NO MAN DIFF REQ WBC (4.8 - 10.8 /CUMM) 8.6 10.1 RBC (4.70 - 6.10 /CUMM) 3.00 L 3.07 L Hgb (14.0 - 18.0 G/DL) 8.9 L 9.1 L Hct (42 - 52 %) 26.7 L 27.5 L MCV (80.0 - 94.0 FL) 89.0 89.8 MCH (27.0 - 31.0 PG) 29.6 29.5 MCHC (33.0 - 37.0 G/DL) 33.3 32.8 L RDW (11.5 - 14.5 %) 13.9 13.6 Plt Count (130 - 400 /CUMM) 173 188 MPV (7.4 - 10.4 FL) 8.7 8.2 Gran % (42.2 - 75.2 %) 74.5 82.1 H Lymphocytes % (20.5 - 51.1 %) 12.6 L 9.5 L Monocytes % (1.7 - 9.3 %) 7.9 6.4 Eosinophils % (0 - 5 %) 4.7 1.8 Basophils % (0.0 - 2.0 %) 0.3 0.2 Absolute Granulocytes (1.4 - 6.5 /CUMM) 6.4 8.3 H Absolute Lymphocytes (1.2 - 3.4 /CUMM) 1.1 L 1.0 L Absolute Monocytes (0.10 - 0.60 /CUMM) 0.7 H 0.6 Absolute Eosinophils (0.0 - 0.7 /CUMM) 0.4 0.2 Absolute Basophils (0.0 - 0.2 /CUMM) 0 0 09/05 1627 Chemistry Sodium (137 - 145 mmol/L) 137 Potassium (3.5 - 5.1 mmol/L) 5.1 Chloride (98 - 107 mmol/L) 112 H Carbon Dioxide (22 - 30 mmol/L) 19 L Anion Gap (5 - 16) 7 BUN (9 - 20 mg/dL) 36 H Creatinine (0.7 - 1.2 mg/dL) 1.4 H Estimated GFR (>60 ml/min) 48 L BUN/Creatinine Ratio (7 - 25 %) 25.7 H Magnesium (1.6 - 2.3 mg/dL) 1.4 L Troponin I (<0.11 ng/ml) < 0.01 Hematology CBC w Diff NO MAN DIFF REQ WBC (4.8 - 10.8 /CUMM) 8.5 RBC (4.70 - 6.10 /CUMM) 2.96 L Hgb (14.0 - 18.0 G/DL) 8.8 L Hct (42 - 52 %) 26.5 L MCV (80.0 - 94.0 FL) 89.6 MCH (27.0 - 31.0 PG) 29.7 MCHC (33.0 - 37.0 G/DL) 33.1 RDW (11.5 - 14.5 %) 13.8 Plt Count (130 - 400 /CUMM) 185 MPV (7.4 - 10.4 FL) 7.8 Gran % (42.2 - 75.2 %) 73.4 Lymphocytes % (20.5 - 51.1 %) 17.5 L Monocytes % (1.7 - 9.3 %) 6.1 Eosinophils % (0 - 5 %) 2.7 Basophils % (0.0 - 2.0 %) 0.3 Absolute Granulocytes (1.4 - 6.5 /CUMM) 6.3 Absolute Lymphocytes (1.2 - 3.4 /CUMM) 1.5 Absolute Monocytes (0.10 - 0.60 /CUMM) 0.5 Absolute Eosinophils (0.0 - 0.7 /CUMM) 0.2 Absolute Basophils (0.0 - 0.2 /CUMM) 0 Diagnostic Data EKG Results Sinus rhythm/sinus bradycardia with episodes of winky block. One junctional beat noted Assessment/Plan Assessment/Plan Assessment: 1. Postoperative bradycardia with transient episodes of winky block and brief junctional escape rhythm 2. Status post left total hip replacement, postop day 1 3. History of coronary artery disease, status post prior bypass surgery 1999 4. History of atrial flutter status post ablation 5. Hypertension 6. Hyperlipidemia 7. Non-insulin and diabetes 8. CKD stage III 9. Chronic anemia Recommendations: -At the present time, the patient is stable postoperatively. I suspect that the postoperative bradycardia was related to anesthesia, surgery, etc. Within a few hours, the patient stabilized into a normal sinus rhythm with brief episodes of winky block overnight while sleeping. This morning, he is in sinus rhythm with a heart rate of 60-80. Occasional atrial ectopy and brief episodes of winky block are noted. As far as we know, these are chronic problems with this patient. -Serial troponins and EKGs have been otherwise unrevealing. -The patient is ambulated without difficulty with physical therapy and negotiated the stairs. -I had an extended discussion with the patient and his family. At the present time, I believe it is safe for the patient to be discharged home. -The patient will call his regular charge histotechnologist later today and have his link monitor downloaded for further evaluation. -The patient will follow up in the very near future with his regular charge histotechnologist. Consult Acknowledgment - Thank you for your consult request.
== END 2018-07-28 13:50 | disposition home health service (06) | DRG 470 ==
LOC: SDA 03:33 → EDBEDREQ 13:32 → ENRESERV 13:49 → ENTRNSPT 14:55 → EDTRNSPTSTS 14:58 → EDTRNSPT 14:58 → CMPTRNSPT 16:05 → 1NO 16:11 → ENPENDDIS 07-28 12:15 → ENTRNSPT 07-28 13:45 → 1NO 07-28 13:50 → CMPTRNSPT 07-28 13:53
PROVIDERS: Physician Assistant Surgical
PROC: 0SRB04A Replacement of Left Hip Joint with Ceramic on Polyethylene Synthetic Substitute, Uncemented, Open Approach (ICD-10-PCS; principal; 2018-07-27)
DX: M16.12 Unilateral primary osteoarthritis, left hip (principal); I97.89 Other postprocedural complications and disorders of the circulatory system, not elsewhere classified; D62 Acute posthemorrhagic anemia; I10 Essential (primary) hypertension; E78.5 Hyperlipidemia, unspecified; K21.9 Gastro-esophageal reflux disease without esophagitis; I25.10 Atherosclerotic heart disease of native coronary artery without angina pectoris; I12.9 Hypertensive chronic kidney disease with stage 1 through stage 4 chronic kidney disease, or unspecified chronic kidney disease; N18.3 Chronic kidney disease, stage 3 (moderate); Z95.1 Presence of aortocoronary bypass graft; E11.9 Type 2 diabetes mellitus without complications; N40.0 Benign prostatic hyperplasia without lower urinary tract symptoms; G47.33 Obstructive sleep apnea (adult) (pediatric); I48.0 Paroxysmal atrial fibrillation; D50.9 Iron deficiency anemia, unspecified; M47.9 Spondylosis, unspecified; R94.31 Abnormal electrocardiogram [ECG] [EKG]; I49.8 Other specified cardiac arrhythmias
CPT/HCPCS: 1NP; 36415; 36592; 73502-LT; 82436; 93005; 93010; 97116-GO; 97162-GP; J0131; J0690; J0735; J2405; J2550; J3490; J7042